=== PATIENT | female | born 1970 | race African-American/Black ===

== ENCOUNTER 2022-07-08 18:29 | Emergency (ER) | payer BC ==
[2022-07-08 19:05] VITALS: RESP 18; TEMP 98.2; BMI 35.5
[2022-07-08 21:55] LABS: BASO % 0.7 % (0-2.0); EOS % 0.6 % (0-4.5); HEMATOCRIT 39.2 % (32.4-45.2); HEMOGLOBIN 12.5 GM/dL (10.7-15.3); LYMPH % 40.3 % (8-40); MCH 29.1 pg (25.7-33.7); MEAN CELL VOLUME 90.9 fl (80-96); MONO % 8.9 % (3.8-10.2); NEUT % 49.5 % (42.8-82.8); PLATELET COUNT 379 10^3/uL (134-434); RBC 4.31 M/mm3 (3.60-5.2); RDW 15.9 % (11.6-15.6); WHITE BLOOD COUNT 7.8 K/mm3 (4.0-10.0)
[2022-07-08 22:00] LABS: MEAN PLT VOLUME 5.7 fl (7.5-11.1)
[2022-07-08 22:13] LABS: CALCIUM 9.3 mg/dL (8.5-10.1)
[2022-07-08 22:14] LABS: ALBUMIN 3.3 g/dl (3.4-5.0); BLOOD UREA NITROGEN 14.3 mg/dL (7-18)
[2022-07-08 22:17] LABS: CREATININE 0.8 mg/dL (0.55-1.3)
[2022-07-08 22:18] LABS: BILIRUBIN,TOTAL 0.3 mg/dL (0.2-1); TOT PROT 6.8 g/dl (6.4-8.2)
[2022-07-08 22:32] VITALS: BP 130/71; PULSE 83
== END 2022-07-08 22:43 | disposition home or self-care (01) ==
LOC: JER 18:29
DX: J09.X2 Influenza due to identified novel influenza A virus with other respiratory manifestations (principal)
CPT/HCPCS: 0241U-QW; 36415; 71046-TC-FY; 80053; 84484; 85025; 85379; 93005; 93010; 99285-25